=== PATIENT | male | born 1935 | race Caucasian/White ===

== ENCOUNTER → 2016-06-16 | Outpatient (CLI) | payer MEDICARE, BC | LOC: HEART 5 10:57 | DX: R01.1 Cardiac murmur, unspecified (principal); I48.0 Paroxysmal atrial fibrillation; I10 Essential (primary) hypertension; I35.0 Nonrheumatic aortic (valve) stenosis | CPT/HCPCS: 93306 ==

== ENCOUNTER 2021-01-03 09:49 | Emergency (ER) | payer MEDICARE, BC ==
[~2021-01-03 09:49] MED LIST: ALFUZOSIN HCL E10 MG PO; DIPHENHYDRAMINE25 M1 PO; DITROPAN 5 MG TA5 MG PO; ELIQUIS2.5 MG PO; FLONASE 0.05% N16 GM; LIPITOR TAB 1010 MG PO; MELATONIN3 MG PO; NEURONTIN 300300 MG PO; NORCO 5-325 TA1 EACH PO; OMEPRAZOLE20 MG PO; REFRESH PLUS1 EACH OU; SINGULAIR10 MG PO; TENORMIN 50 MG50 MG PO
[2021-01-03 10:51] LABS: RED BLOOD COUNT 3.68 M/UL (4.20-5.50)
[2021-01-03 11:05] LABS: BUN/CREATININE RATIO 19 (0-10)
[2021-01-03] MEDS ORDERED: CEPHALEXIN500 MG PO (15:26)
[2021-01-03] MEDS ORDERED: VIBRAMYCIN100 MG PO (15:26)
== END 2021-01-03 15:31 | disposition home or self-care (01) ==
LOC: ER1 09:49
PROVIDERS: Emergency Medicine
DX: S80.812A Abrasion, left lower leg, initial encounter (principal); L03.116 Cellulitis of left lower limb; I10 Essential (primary) hypertension; Z79.01 Long term (current) use of anticoagulants; X58.XXXA Exposure to other specified factors, initial encounter
CPT/HCPCS: 80053; 83880; 85025; 85610; 85730; 93926; 93971; 99284

== ENCOUNTER → 2021-07-08 | Outpatient (CLI) | payer MEDICARE, BC ==
[~2021-07-08] MED LIST changes: +CEPHALEXIN500 MG PO; +VIBRAMYCIN100 MG PO
== END ==
LOC: HEART CORB 14:19
DX: I11.0 Hypertensive heart disease with heart failure (principal); I50.9 Heart failure, unspecified; R60.0 Localized edema; R06.02 Shortness of breath
CPT/HCPCS: 93306